=== PATIENT | male | born 1965 | race Caucasian/White ===

== ENCOUNTER 2018-01-25 05:36 | Day surgery (SDC) | payer OTHER ==
[2018-01-18 09:49] LABS: HEMATOCRIT 44.1 % (37.9-51.0); HEMOGLOBIN 15.5 g/dL (13.5-17.0); MEAN CORPUSCULAR HEMOGLOBIN 28.7 pg (27.0-33.4); MEAN CORPUSCULAR VOLUME 82 fl (80-97); PLATELET COUNT 265 10^3/uL (150-450); RED BLOOD COUNT 5.39 10^6/uL (4.35-5.55); WHITE BLOOD COUNT 6.5 10^3/uL (4.0-10.5)
--- NOTE | 2018-01-18 09:52 | RADIOLOGY REPORT (SQ) ---
EXAM DESCRIPTION: CHEST PA/LATERAL COMPLETED DATE/TIME: 01/18/2018 9:36 am REASON FOR STUDY: PRE-OP COMPARISON: None. EXAM PARAMETERS: NUMBER OF VIEWS: two views TECHNIQUE: Digital Frontal and Lateral radiographic views of the chest acquired. RADIATION DOSE: NA LIMITATIONS: none FINDINGS: LUNGS AND PLEURA: No opacities, masses or pneumothorax. No pleural effusion. MEDIASTINUM AND HILAR STRUCTURES: No masses or contour abnormalities. HEART AND VASCULAR STRUCTURES: Heart normal size. No evidence for failure. BONES: No acute findings. HARDWARE: None in the chest. OTHER: No other significant finding. IMPRESSION: NO SIGNIFICANT RADIOGRAPHIC FINDING IN THE CHEST. TECHNICAL DOCUMENTATION: JOB ID: [id number] [employer]- All Rights Reserved Reading location - IP/workstation name: [email or web address]
[2018-01-18 10:09] LABS: APPEARANCE,URINE SLIGHTLY-CLOUDY; BILIRUBIN,URINE NEGATIVE (NEGATIVE); COLOR,URINE YELLOW; GLUCOSE, URINE NEGATIVE (NEGATIVE); KETONES,URINE NEGATIVE (NEGATIVE); LEUKOCYTE ESTERASE,URINE NEGATIVE (NEGATIVE); NITRITE,URINE NEGATIVE (NEGATIVE); PROTEIN,URINE NEGATIVE (NEGATIVE); URINE SPECIFIC GRAVITY 1.029
[2018-01-18 10:18] LABS: ANION GAP 11 (5-19); BLOOD UREA NITROGEN 17 mg/dL (7-20); CALCIUM 9.4 mg/dL (8.4-10.2); CARBON DIOXIDE 25 mmol/L (22-30); CHLORIDE 104 mmol/L (98-107); GLUCOSE 99 mg/dL (75-110); POTASSIUM 4.5 mmol/L (3.6-5.0); SODIUM 140.4 mmol/L (137-145)
--- NOTE | 2018-01-18 13:00 | EKG REPORT ---
SEVERITY:- BORDERLINE ECG - SINUS RHYTHM LEFT AXIS DEVIATION LOW VOLTAGE THROUGHOUT : Confirmed by: Jun Du MD 18-Jan-2018 13:00:11
[~2018-01-25 05:36] MED LIST: CEFAZOLIN 2 GM/D5W RTU 2 GM/50 ML RTUPB IV ONE; CEFAZOLIN 2 GM/D5W RTU 2 GM/50 ML RTUPB IV PRN; LACTATED RINGERS 1000 ML IV PRN; LIDOCAINE 0.5% INJ-PF (5 MG/ML) 50 ML SDV SUBCUT PRN
[2018-01-25] MEDS ORDERED: MIDAZOLAM 2 MG/2 ML INJ ONE (06:47)
[2018-01-25] MEDS ORDERED: HYDROMORPHONE HCL INJ/PF 2 MG/ML AMPULE ONE (06:47)
[2018-01-25] MEDS ORDERED: ONDANSETRON HCL INJ/PF 4 MG/2 ML SDV ONE (06:48)
[2018-01-25] MEDS ORDERED: PROPOFOL INJ 200 MG/20 ML VIAL IV ONE (06:48)
[2018-01-25] MEDS ORDERED: EPHEDRINE SULFATE INJ 50 MG/1 ML AMPULE ONE (06:48)
[2018-01-25] MEDS ORDERED: BUPIVACAINE HCL 0.5 % INJ/PF 30 ML SDV ONE (07:15)
--- NOTE | 2018-01-25 07:30 | Discharge Summary ---
Discharge Summary (SDC) - Discharge Final Diagnosis: Right scapholunate advanced collapse Date of Surgery: 01/25/18 Discharge Date: 01/25/18 Condition: Good Treatment or Instructions: Schedule Follow Up w/ Dr. Niraj Reyes @ [facility] to be seen in 10-14 days or as scheduled [place]: [place]: [place]: Ice and elevate Keep splint clean/dry/intact. If your fingers become numb please unwrap the Shaggy wrap but leave the splint in place, if the sensation does not return within 30 minutes please return to the emergency department. May begin finger range of motion attempting to make full fist. Please use ibuprofen (Motrin or Advil) 600-800 mg every 8 hours as needed for pain or fever DO NOT TAKE w/ TORADOL may use once TORADOL complete. You may also use acetaminophen (Tylenol) 1000 mg every 4-6 hours as needed for pain or fever. Please be aware that many medications contain acetaminophen, do not exceed a total of 1000 mg of acetaminophen every 6 hours. If ibuprofen and acetaminophen are not sufficient for your pain you may take the Percocet/[place]. Please be aware that the Percocet/[place] does contain Tylenol. Stool softener of choice when on pain medication. Prescriptions: Ketorolac Tromethamine [Toradol 10 mg Tablet] 10 mg PO Q8HP PRN #12 tablet PRN Reason: Oxycodone HCl/Acetaminophen [Percocet 5-325 mg Tablet] 1 - 2 tab PO Q6 #25 tablet Discharge Diet: As Tolerated Respiratory Treatments at Home: Deep Breathing/Coughing Discharge Activity: No Driving, No Lifting Over 10 Pounds, No Lifting/Push/ Pulling Report the Following to Your Physician Immediately: Fever over 101 Degrees, Unusual Bleeding, Redness, Swelling, Warmth, Increased Soreness
[2018-01-25] MEDS ORDERED: DIPHENHYDRAMINE HCL 50 MG/ML VIAL IV PRN (07:46)
[2018-01-25] MEDS ORDERED: MEPERIDINE HCL/PF INJ 25 MG/1 ML DISP.SYRIN IV PRN (07:46)
[2018-01-25] MEDS ORDERED: PROMETHAZINE HCL INJ 25 MG/1 ML VIAL IV PRN (07:46)
[2018-01-25] MEDS ORDERED: FENTANYL CITRATE INJ/PF 100 MCG/2 ML AMPUL IV PRN ×3 (07:46)
[2018-01-25] MEDS ORDERED: OXYCODONE-ACETAMINOPHEN 5-325 MG TABLET PO PRN (09:39)
[2018-01-25] MEDS ORDERED: HYDROMORPHONE HCL INJ/PF 2 MG/ML AMPULE IV PRN (09:39)
[2018-01-25] MEDS: FENTANYL CITRATE INJ/PF 100 MCG/2 ML AMPUL ONE ×2 (09:45→09:50)
--- NOTE | 2018-01-25 09:47 | Operative Report ---
Operative Report DATE OF SURGERY: 01/25/18 PREOPERATIVE DIAGNOSIS: Right Wrist Scapholunate Advanced Collapse POSTOPERATIVE DIAGNOSIS: Same OPERATION: Right Wrist Scaphoid Excision w/ Midcarpal Arthrodesis. Posterior Intraosseous Neurectomy SURGEON: CORNEL TILLEY ANESTHESIA: GA COMPLICATIONS: None ESTIMATED BLOOD LOSS: Minimal PROCEDURE: Indication for above procedure: 52-year-old male with history of scapholunate advanced collapse. Conservative measures were attempted including multiple injections, anti-inflammatories and immobilization which did provide patient relief over time patient's pain became more persistent and failed conservative measures. We discussed treatment options including operative versus continued nonoperative management. After discussing the risks and benefits of both joint decision was made to proceed with operative treatment. Procedure In Detail: Patient was seen and evaluated in the preoperative holding area. The RIGHT upper extremity was initialized and marked. Patient received 2g of Ancef IV for bacterial prophylaxis. Patient was taken back to the operative room where transferred to the operative table and placed under general anesthesia. Once they were adequately anesthetized a nonsterile tourniquet was placed on the upper extremity. A surgical team debriefing was performed ensuring all instrumentation was available, the surgical procedure was discussed with possible concerns reviewed. The upper extremity was prepped with chlorhexidine and alcohol and draped in a sterile fashion. A timeout was done identifying correct patient, procedure and extremity everyone in attendance agree with this and verbalized no concerns. The extremity was exsanguinated the tourniquet was inflated to 250 mmHg. Longitudinal skin incision was made just ulnar to Gamaliel's tubercle. Blunt dissection was performed. Any peripheral veins were coagulated with bipolar cautery. The superficial radial nerve was identified and retracted with the skin flap in a radial direction. The third dorsal compartment was then entered distally and the EPL tendon retracted in a radial direction. The fourth dorsal compartment was then elevated to expose the wrist capsule. The posterior interosseous nerve was then identified within the radial floor of the fourth dorsal compartment and 1.5 cm of the PIN was resected. A Vasquez type capsulotomy radial based was then performed to expose the carpus. Once the carpus was exposed there was evidence of end-stage degenerative changes of the radial scaphoid fossa and the proximal capitate. There is no evidence of cartilage degeneration of the proximal lunate or lunate fossa and thus decision was made to proceed with midcarpal arthrodesis. With C arm fluoroscopy the dimensions of the scaphoid were determined. The scaphoid capitate ligament and STT ligaments were released and the scaphoid was removed piecemeal and placed on the back table for later bone graft. C-arm fluoroscopy was obtained confirming complete excision of the scaphoid. The proximal capitate was then exposed utilizing 0.062 K wires to retract the lunate and capitate. The proximal cartilage and sclerotic bone was excised with a rondure until normal-appearing cancellus bone was exposed. With a rondure and osteotome the distal aspect of the lunate was debrided to expose underlying cancellus bone. With the joysticks I then reduce the capitate- lunate articulation and placed a 0.045 K wire to maintain reduction. C-arm fluoroscopy was obtained confirming adequate jainism of the capitate lunate angle and adequate coverage on AP view. Once this was confirmed to be any stable measuring dissection was utilized to determine the appropriate size [place]. A 15 mm staple was measured for the radial aspect of the capitate-lunate fusion and a 13 mm staple for the ulnar aspect of the capitate-lunate fusion. The drill guide was then placed in 0.045 K wires were directed to determine appropriate placement of the staple C-arm fluoroscopy confirmed adequate spacing and dimensions. The holes were then drilled a trough made and a 15 mm x 12 mm staple secured into position. The bone graft from the scaphoid was then impacted into the capitate-lunate articulation. The drill guide for the 13 mm staple was then utilized a trough made. A 13 mm x 10 mm staple was placed along the ulnar border. This provided adequate compression. Any remaining intricacies was then filled with bone graft. The wound was copiously irrigated with normal saline. Under C-arm fluoroscopy there was adequate jainism of capitolunate angle and coverage on AP view. There is no evidence of impingement of the stable dorsally. No crepitus with range of motion. The capsulotomy was then closed with interrupted 3-0 Ethibond suture. Tourniquet was then deflated any peripheral bleeding was controlled with bipolar cautery until the wound was dry. The retinaculum was repaired with interrupted 4-0 Monocryl suture there is no evidence of extensor tendon impingement after closure. The subcutaneous tissues closed with interrupted 4- 0 Monocryl suture. Skin was closed with a running subcuticular 4-0 Monocryl reinforced with Dermabond and Steri-Strips. 30 cc of 0.5% Marcaine without epinephrine was injected for postoperative pain control. Patient was placed in a dorsal splint with the wrist in neutral position. Sponge counts, instrument counts, needle counts counts were correct. Patient was then awoken from anesthesia. Transferred from the operating room table to the operating room stretcher. There was no intraoperative complications patient tolerated procedure well stable to PACU. Postoperative plan: Patient will follow-up the office in 2 weeks at which point we will obtain radiographs and transition him to a short arm cast. Patient will begin range of motion once midcarpal arthrodesis fusion is confirmed with CT scan.
[2018-01-25] MEDS ORDERED: OXYCODONE-ACETAMINOPHEN 5-325 MG TABLET ONE (10:31)
[2018-01-25 12:12] VITALS: BP 131/84
--- NOTE | 2018-01-25 16:21 | RADIOLOGY REPORT (SQ) ---
EXAM DESCRIPTION: WRIST RIGHT 2 VIEWS; NO CHG FLUORO COMPLETED DATE/TIME: 01/25/2018 3:54 pm REASON FOR STUDY: RIGHT WRIST SCAPHOID EXCISION, FIXATION IN OR M19.231 SECONDARY OSTEOARTHRITIS, R IGHT WRIST COMPARISON: No previous FLUOROSCOPY TIME: 40 seconds 3 digital C-arm images saved to PACS. TECHNIQUE: Intra-operative images acquired during surgical procedure to evaluate progress. NUMBER OF IMAGES: 3 digital C-arm images LIMITATIONS: None. FINDINGS: 3 C-arm images are submitted during carpal bone fusion and resection of the scaphoid bone. Please see the operative report for further details IMPRESSION: Intra procedural imaging and fluoro COMMENT: Quality ID [id number]: Final reports for procedures using fluoroscopy that document radiation exp osure indices, or exposure time and number of fluorographic images (if radiation exposure indices are not available) Please consult full operative report of the attending physician for description of the procedure. TECHNICAL DOCUMENTATION: JOB ID: [id number] [employer]- All Rights Reserved Reading location - IP/workstation name: [email or web address]
--- NOTE | 2018-01-25 16:21 | RADIOLOGY REPORT (SQ) ---
EXAM DESCRIPTION: WRIST RIGHT 2 VIEWS; NO CHG FLUORO COMPLETED DATE/TIME: 01/25/2018 3:54 pm REASON FOR STUDY: RIGHT WRIST SCAPHOID EXCISION, FIXATION IN OR M19.231 SECONDARY OSTEOARTHRITIS, R IGHT WRIST COMPARISON: No previous FLUOROSCOPY TIME: 40 seconds 3 digital C-arm images saved to PACS. TECHNIQUE: Intra-operative images acquired during surgical procedure to evaluate progress. NUMBER OF IMAGES: 3 digital C-arm images LIMITATIONS: None. FINDINGS: 3 C-arm images are submitted during carpal bone fusion and resection of the scaphoid bone. Please see the operative report for further details IMPRESSION: Intra procedural imaging and fluoro COMMENT: Quality ID [id number]: Final reports for procedures using fluoroscopy that document radiation exp osure indices, or exposure time and number of fluorographic images (if radiation exposure indices are not available) Please consult full operative report of the attending physician for description of the procedure. TECHNICAL DOCUMENTATION: JOB ID: [id number] [employer]- All Rights Reserved Reading location - IP/workstation name: [email or web address]
== END 2018-01-25 11:25 | disposition home or self-care (01) ==
LOC: OROUT 05:36
PROVIDERS: ATTEND Orthopaedic Surgery
DX: M19.231 Secondary osteoarthritis, right wrist (principal); E66.9 Obesity, unspecified; I48.91 Unspecified atrial fibrillation; Z79.899 Other long term (current) drug therapy; Z68.38 Body mass index [BMI] 38.0-38.9, adult
CPT/HCPCS: 93005; 36415; 85027; 80048; 81001; 71046; 73100; 93010; 64772; 25332; 25820; C1713 ×2; C1776; J2250; J3490 ×2; J3010; J1170; J2405; J2704; J0690